=== PATIENT | female | born 1995 | race Caucasian/White ===

== ENCOUNTER 2018-06-22 12:52 | Emergency (ER) | payer SELFPAY ==
[~2018-06-22] VITALS: Ht 152.4 cm; Wt 59.0 kg
[2018-06-22] MEDS ORDERED: KETOROLAC 30MG/ML VIAL IM ONE (15:15)
[2018-06-22] MEDS ORDERED: METHOCARBAMOL 500MG TABLET PO ONE (15:15)
[2018-06-22 16:56] VITALS: BP 112/72
== END 2018-06-22 16:59 | disposition home or self-care (01) ==
LOC: ER 12:52
DX: S16.1XXA Strain of muscle, fascia and tendon at neck level, initial encounter (principal); M54.6 Pain in thoracic spine; R51 Headache; V49.09XA Driver injured in collision with other motor vehicles in nontraffic accident, initial encounter; Y93.89 Activity, other specified; Y92.89 Other specified places as the place of occurrence of the external cause; Y99.8 Other external cause status
CPT/HCPCS: 81025; 96372; 99283; J1885